=== PATIENT | female | born 1950 | race Caucasian/White ===

== ENCOUNTER 2021-07-20 10:15 | Inpatient (IN) | payer MEDICARE, BC ==
[2021-07-20] MEDS ORDERED: Ondansetron 8 MG Tab.DIS PO PRN (16:10)
[2021-07-20] MEDS ORDERED: Prochlorperazine 10 MG Tab PO PRN (16:10)
[2021-07-20] MEDS ORDERED: Sennosides 8.6 MG Tab PO PRN (16:10)
[2021-07-20] MEDS ORDERED: Albuterol 8 GM Inhaler INH PRN (16:10)
--- NOTE | 2021-07-20 16:30 | PCM.HP.2 ---
H&P History of Present Illness - General Date of Service: 07/20/21 Admit Problem/Dx: Admission Diagnosis/Problem Admission Diagnosis/Problem Weakness Source of Information: Patient, Family, Provider - History of Present Illness Initial Comments - Free Text/Narative: Radha presents for swing bed admission for weakness secondary to hepatic encephalopathy, high grade gastric neuroendocrine carcinoma. She had chemotherapy 07/04, 07/05, 07/06, had plexus block for pain on 07/09 she continued to decline was admitted to [facility] on 07/11 due to acute hepatic encephalopathy. History of cirrhosis, varices. Her ammonia 164 on admission, was 40 on 07/19, 42 on 07/20. She had her dose of Lactulose increased to 45 gm qid, she has had 6 stools today. She also had Rifaximin 550 mg bid added and her ammonia improved. She and her daughter state that she was taking 15 gm qid at home. She also had paracentesis on 07/09, did not show spontaneous bacterial peritonitis(SBP). She was being treated with Ciprofloxacin for this while awaiting body fluid results, discontinued 07/17. They had discussed starting Levofloxacin as prophylaxis but decided against this on discharge. They did note some malignant cells in the fluid. Oncology is holding off on chemotherapy until her WBC and functional status improves. CHEM: Na 133, K 3.3, Cl 103, CO2 21, Ca 7.8, Albumin 2.5, glucose 87, BUN <3, Cr 0.60. CBC: WBC 1.6, ANC 400, Hgb 9.5, Plts 138. She had episode of questionable partial seizure, had MRI showed hepatic encephalopathy, but no mets. EEG done. Neurology saw, started on Keppra 500 mg bid and she is to follow up in 4 weeks. They also did referral for palliative care, patient wants to try to get home and is not ready for hospice yet, so transferred for short term rehab. - Related Data Home Medications: Home Meds Albuterol [Ventolin HFA] 2 puff INH Q4H PRN 07/20/21 [History] Calcium Carbonate/Vitamin D3 [Oystercal-D 500 mg-400 Unit Tb] 1 tab PO BIDMEALS 07/20/21 [History] EPINEPHrine [Epipen 2-Mt] 0.3 mg IM ASDIRECTED PRN 07/20/21 [History] Ferrous Sulfate 325 mg PO BID 07/20/21 [History] Folic Acid 1 mg PO DAILY 07/20/21 [History] Furosemide 80 mg PO BID 07/20/21 [History] Lactulose [Chronulac] 30 gm PO QID 07/20/21 [History] Levothyroxine 75 mcg PO ACBREAKFAST 07/20/21 [History] Ondansetron [Zofran ODT] 8 mg PO BID PRN 07/20/21 [History] Pantoprazole Sodium [Protonix] 40 mg PO BIDAC 07/20/21 [History] Prochlorperazine [Compazine] 10 mg PO QID PRN 07/20/21 [History] Propylene Glycol/PEG 400/Pf [Systane 0.3-0.4% Eye Drop] 1 drop EYEBOTH Q4H PRN 07/20/21 [History] Rifaximin [Xifaxan] 550 mg PO BID 07/20/21 [History] Sennosides [Senna] 8.6 mg PO BEDTIME 07/20/21 [History] Spironolactone 50 mg PO DAILY 07/20/21 [History] Tetrahydrozoline HCl [Eye Drops] 1 drop EYEBOTH Q4H PRN 07/20/21 [History] Thiamine [Vitamin B-1] 100 mg PO DAILY 07/20/21 [History] Triamcinolone Acetonide [Triamcinolone Acetonide 0.1% Crm] 1 applic TOP ASDIRECTED 07/20/21 [History] dexAMETHasone [Dexamethasone] 8 mg PO ASDIRECTED 07/20/21 [History] levETIRAcetam [Keppra] 500 mg PO BID 07/20/21 [History] oxyCODONE 5 mg PO Q4H PRN 07/20/21 [History] H&P Review of Systems - Review of Systems: Review Of Systems: See Below General: Reports: Weakness, Weight Loss (lost 17 lbs since hospitalized.). Denies: Fever, Chills HEENT: Reports: No Symptoms Pulmonary: Reports: No Symptoms Cardiovascular: Reports: No Symptoms Gastrointestinal: Reports: Abdominal Pain, Diarrhea, Decreased Appetite. Denies: Black Stool, Bloody Stool, Nausea, Vomiting Genitourinary: Reports: No Symptoms Musculoskeletal: Reports: No Symptoms Skin: Reports: No Symptoms Psychiatric: Reports: No Symptoms Neurological: Reports: Confusion (some confusion), Difficulty Walking Hematologic/Lymphatic: Reports: Anemia, Easy Bleeding, Easy Bruising Exam - Exam Exam: See Below - Exam General: Alert, Oriented (person, place, somewhat confused), Cooperative, Other ([place]) HEENT: PERRLA, EOMI, Hearing Intact, Mucosa Moist & [place], Scleral Icterus Neck: Trachea Midline Lungs: Clear to Auscultation, Normal Respiratory Effort Cardiovascular: Regular Rate, Regular Rhythm GI/Abdominal Exam: Soft, No Distention, Guarding, Tender, Abnormal Bowel Sounds (hyperactive BS X 4), Hernia (Female) Exam: Deferred Rectal (Female) Exam: Deferred Extremities: No Pedal Edema, Normal Capillary Refill, Pallor Peripheral Pulses: 2+: Radial (L), Radial (R), Posterior Tibial (L), Posterior Tibial (R), Dorsalis Pedis (L), Dorsalis Pedis (R) Skin: Warm, Dry, Intact Neurological: Cranial Nerves Intact, Normal Speech, Normal Tone Neuro Extensive - Mental Status: Slow Response to Commands - Problem List (1) Weakness SNOMED Code(s): 76325266 ICD Code: R53.1 - WEAKNESS Status: Acute Current Visit: Yes (2) Neutropenia SNOMED Code(s): 638085755 ICD Code: D70.9 - NEUTROPENIA, UNSPECIFIED Status: Acute Current Visit: Yes Qualifiers: Neutropenia type: secondary to cancer chemotherapy Qualified Code(s): D70.1 - Agranulocytosis secondary to cancer chemotherapy; T45.1X5A - Adverse effect of antineoplastic and immunosuppressive drugs, initial encounter (3) Hepatic encephalopathy SNOMED Code(s): 41367778 ICD Code: K72.90 - HEPATIC FAILURE, UNSPECIFIED WITHOUT COMA Status: Chronic Current Visit: Yes (4) Partial seizure Status: Suspected Current Visit: Yes Problem Details: Had MRI showed hepatic encephalopathy, EEG. Neurology started Keppra 500 mg bid. Follow up in 4 weeks. (5) Neuroendocrine carcinoma of stomach SNOMED Code(s): 989666873, 169444685 ICD Code: C7A.8 - OTHER MALIGNANT NEUROENDOCRINE TUMORS Status: Chronic Current Visit: Yes (6) History of cirrhosis SNOMED Code(s): 309254797 ICD Code: Z87.19 - PERSONAL HISTORY OF OTHER DISEASES OF THE DIGESTIVE SYSTEM Status: Chronic Current Visit: Yes (7) History of esophageal varices SNOMED Code(s): 84530423806082625 ICD Code: Z87.19 - PERSONAL HISTORY OF OTHER DISEASES OF THE DIGESTIVE SYSTEM Status: Acute Current Visit: Yes (8) Hypothyroidism (acquired) SNOMED Code(s): 478453839 ICD Code: E03.9 - HYPOTHYROIDISM, UNSPECIFIED Status: Chronic Current Visit: Yes (9) Hypercholesteremia SNOMED Code(s): 27268889 ICD Code: E78.00 - PURE HYPERCHOLESTEROLEMIA, UNSPECIFIED Status: Chronic Current Visit: Yes (10) Alcohol dependence SNOMED Code(s): 25493888 ICD Code: F10.20 - ALCOHOL DEPENDENCE, UNCOMPLICATED Status: Chronic Current Visit: Yes (11) History of GI bleed SNOMED Code(s): 715728562 ICD Code: Z87.19 - PERSONAL HISTORY OF OTHER DISEASES OF THE DIGESTIVE SYSTEM Status: Chronic Current Visit: Yes (12) Asthma SNOMED Code(s): 771006927 ICD Code: J45.909 - UNSPECIFIED ASTHMA, UNCOMPLICATED Status: Chronic Current Visit: Yes (13) Protein-calorie malnutrition, severe SNOMED Code(s): 929849842, 998607524, 432354682 ICD Code: E43 - UNSPECIFIED SEVERE PROTEIN-CALORIE MALNUTRITION Status: Chronic Current Visit: Yes Problem List Initiated/Reviewed/Updated: Yes Orders Last 24hrs: Active Orders 24 hr Category Date Time Status Patient Status [ADT] Routine ADT 07/20/21 15:58 Ordered Height and Weight [RC] WEEKLY Care 07/20/21 15:58 Ordered Oxygen Therapy [RC] PRN Care 07/20/21 15:58 Ordered RT Aerosol Therapy [RC] ASDIRECTED Care 07/20/21 16:17 Ordered RT Post Treatment Assessment [RC] Click to Edit Care 07/20/21 16:17 Ordered Up With Assistance [RC] ASDIRECTED Care 07/20/21 15:58 Ordered Up to Chair [RC] ASDIRECTED Care 07/20/21 15:58 Ordered VTE/DVT Education [RC] Per Unit Routine Care 07/20/21 15:58 Ordered Vital Signs [RC] PER UNIT ROUTINE Care 07/20/21 15:58 Ordered OT Evaluation and Treatment [CONS] Routine Cons 07/20/21 15:58 Ordered PT Evaluation and Treatment [CONS] Routine Cons 07/20/21 15:58 Ordered Regular Diet [DIET] Diet 07/20/21 Dinner Ordered Albuterol [Ventolin HFA] Med 07/20/21 16:10 Ordered 2 puff INH Q4H PRN Calcium Carbonate/Vitamin D3 [Oystercal-D 500 mg-400 Med 07/20/21 18:00 Ordered Unit Tb] 1 tab PO BIDMEALS Ferrous Sulfate Med 07/20/21 21:00 Ordered 325 mg PO BID Folic Acid Med 07/21/21 09:00 Ordered 1 mg PO DAILY Furosemide [Lasix] Med 07/20/21 21:00 Ordered 80 mg PO BID Lactulose [Chronulac] Med 07/20/21 17:00 Ordered 30 gm PO QID Levothyroxine Med 07/21/21 07:30 Ordered 75 mcg PO ACBREAKFAST Ondansetron [Zofran ODT] Med 07/20/21 16:10 Ordered 8 mg PO BID PRN Pantoprazole [ProTONIX] Med 07/20/21 17:30 Ordered 40 mg PO BIDAC Prochlorperazine [Compazine] Med 07/20/21 16:10 Ordered 10 mg PO QID PRN Propylene Glycol/PEG 400/Pf [Systane 0.3-0.4% Eye Drop] Med 07/20/21 16:10 Ordered 1 drop EYEBOTH Q4H PRN Rifaximin [Xifaxan] Med 07/20/21 21:00 Ordered 550 mg PO BID Sennosides [Senna] Med 07/20/21 16:10 Ordered 8.6 mg PO BEDTIME PRN Spironolactone [Aldactone] Med 07/21/21 09:00 Ordered 50 mg PO DAILY Tetrahydrozoline HCl [Eye Drops] Med 07/20/21 16:10 Ordered 1 drop EYEBOTH Q4H PRN Thiamine [Vitamin B-1] Med 07/21/21 09:00 Ordered 100 mg PO DAILY levETIRAcetam [Keppra] Med 07/20/21 21:00 Ordered 500 mg PO BID oxyCODONE Med 07/20/21 16:10 Ordered 5 mg PO Q4H PRN Antiembolic Hose [OM.PC] Per Unit Routine Oth 07/20/21 15:59 Ordered Resuscitation Status Routine Resus Stat 07/20/21 15:58 Ordered Medication Orders Albuterol (Albuterol 8 Gm Inhaler) gm INH Q4H PRN PRN Reason: SHORTNESS OF BREATH Ferrous Sulfate (Ferrous Sulfate 325 Mg Tab) 325 mg PO BID [facility] Folic Acid (Folic Acid 1 Mg Tab) 1 mg PO DAILY MATTHEW Furosemide (Furosemide 80 Mg Tab) 80 mg PO BID [facility] Lactulose (Lactulose Soln 10 Gm/15 Ml 15 Ml Ud Cup) 30 gm PO QID MATTHEW Levetiracetam (Levetiracetam 500 Mg Tab) 500 mg PO BID MATTEHW Levothyroxine Sodium (Levothyroxine 75 Mcg Tab) 75 mcg PO ACBREAKFAST [facility] Non-Formulary Medication (Calcium Carbonate/Vitamin D3 [Oystercal-D 500 Mg-400 Unit Tb]) 1 tab PO BIDMEALS [facility] Non-Formulary Medication (Propylene Glycol/Peg 400/Pf [Systane 0.3-0.4% Eye Drop]) 1 drop EYEBOTH Q4H PRN PRN Reason: Dry Eyes Non-Formulary Medication (Tetrahydrozoline Hcl [Eye Drops]) 1 drop EYEBOTH Q4H PRN PRN Reason: REDNESS Ondansetron HCl (Ondansetron 8 Mg Tab.Dis) 8 mg PO BID PRN PRN Reason: NAUSEA Oxycodone HCl (Oxycodone 5 Mg Tab) 5 mg PO Q4H PRN PRN Reason: Pain (moderate 4-6) Pantoprazole Sodium (Pantoprazole 40 Mg Tab.Cr) 40 mg PO BIDAC [facility] Prochlorperazine Maleate (Prochlorperazine 10 Mg Tab) 10 mg PO QID PRN PRN Reason: Nausea/Vomiting Rifaximin (Rifaximin 550 Mg Tab) 550 mg PO BID [facility] Senna (Sennosides 8.6 Mg Tab) 8.6 mg PO BEDTIME PRN PRN Reason: Constipation Spironolactone (Spironolactone 50 Mg Tab) 50 mg PO DAILY [facility] Thiamine HCl (Thiamine 100 Mg Tab) 100 mg PO DAILY [facility] Assessment/Plan Comment:: 1. Admit to swing bed for weakness, hepatic encephalopathy, gastric neuroendocrine carcinoma, protein calorie malnutrition. 2. Weakness: PT/OT evaluate & treat. 3. Hepatic encephalopathy/cirrhosis/ascites: Lactulose 30 gm QID, if continues to have >3 stools/day, may need to hold a dose and decrease to tid or decrease back to previous dose of 15 gm QID. Rifaximin 550 mg bid. Lasix 80 mg bid diuretics & Spironolactone 50 mg daily. 4. Gastric neuroendocrine carcinoma: hold chemotherapy until her WBC & functional status improves. 5. Neutropenia: Protective precautions. Repeat labs on Friday. Levofloxacin 6. Suspected partial seizures: Keppra 500 mg bid, follow up with Neurology in 4 weeks. Seizure precautions. 7. Protein-calorie malnutrition: Dietary consult, high protein supplements TID. She had Boost Breeze in [place], will use what dietary has available. 8. Diet: Regular diet, thin liquids. 9. Activity: up to chair and with assistance. 10. CODE STATUS: FULL. 11. Disposition: Once mets therapy goals, family and patient are hoping she can transition to home. Adjust treatments as needed. - Mortality Measure Prognosis:: Poor
[2021-07-20] MEDS ORDERED: Lactulose Soln 10 GM/15 ML 30 ML UD Cup PO SCH ×2 (17:00→21:00)
[2021-07-20] MEDS ORDERED: Lactulose Soln 10 GM/15 ML 15 ML UD Cup PO SCH (17:00)
[2021-07-20] MEDS: Pantoprazole 40 MG Tab.CR PO SCH (18:00)
[2021-07-20] MEDS: Calcium Carbonate 500 MG Tablet PO SCH (18:00)
[2021-07-20] MEDS: oxyCODONE 5 MG Tab PO PRN (18:11)
[2021-07-20] MEDS: Ferrous Sulfate 325 MG Tab PO SCH (20:14)
[2021-07-20] MEDS: levETIRAcetam 500 MG Tab PO SCH (20:15)
[2021-07-20] MEDS: Rifaximin 550 MG Tab PO SCH (20:16)
[2021-07-20] MEDS: Lactulose Soln 10 GM/15 ML 30 ML UD Cup PO SCH ×2 (20:19→20:51)
[2021-07-20] MEDS: TETRAHYDROZOLINE EYEBOTH PRN (20:21)
[2021-07-20] MEDS: ZINC SULFATE EYEBOTH PRN (20:21)
[2021-07-21] MEDS: Levothyroxine 75 MCG Tab PO SCH (05:55)
[2021-07-21] MEDS: Pantoprazole 40 MG Tab.CR PO SCH ×2 (06:33→17:26)
[2021-07-21] MEDS: Furosemide 80 MG Tab PO SCH ×2 (08:27→13:36)
[2021-07-21] MEDS: Calcium Carbonate 500 MG Tablet PO SCH ×2 (08:28→17:26)
[2021-07-21] MEDS: Folic Acid 1 MG Tab PO SCH (08:28)
[2021-07-21] MEDS: Rifaximin 550 MG Tab PO SCH ×2 (08:28→20:14)
[2021-07-21] MEDS: levETIRAcetam 500 MG Tab PO SCH ×2 (08:28→20:14)
[2021-07-21] MEDS: Spironolactone 50 MG Tab PO SCH (08:29)
[2021-07-21] MEDS: Lactulose Soln 10 GM/15 ML 30 ML UD Cup PO SCH ×4 (08:29→20:14)
[2021-07-21] MEDS: Ferrous Sulfate 325 MG Tab PO SCH ×2 (08:30→20:14)
[2021-07-21] MEDS: Thiamine 100 MG Tab PO SCH (08:30)
[2021-07-21] MEDS: ZINC SULFATE EYEBOTH PRN ×2 (08:33→20:15)
[2021-07-21] MEDS: TETRAHYDROZOLINE EYEBOTH PRN ×2 (08:33→20:15)
[2021-07-21] MEDS: PEG 400/Propylene Glycol Ophth Soln 15 ML Bottle EYEBOTH PRN (08:34)
[2021-07-21] MEDS: oxyCODONE 5 MG Tab PO PRN ×2 (14:21→22:50)
[2021-07-22] MEDS: oxyCODONE 5 MG Tab PO PRN ×2 (05:37→20:07)
[2021-07-22] MEDS: Levothyroxine 75 MCG Tab PO SCH (05:38)
[2021-07-22] MEDS: Pantoprazole 40 MG Tab.CR PO SCH ×2 (06:32→17:48)
[2021-07-22] MEDS: Lactulose Soln 10 GM/15 ML 30 ML UD Cup PO SCH ×5 (08:36→21:24)
[2021-07-22] MEDS: Furosemide 80 MG Tab PO SCH ×2 (08:36→13:32)
[2021-07-22] MEDS: Ferrous Sulfate 325 MG Tab PO SCH ×2 (08:37→20:06)
[2021-07-22] MEDS: Calcium Carbonate 500 MG Tablet PO SCH ×2 (08:37→17:49)
[2021-07-22] MEDS: Spironolactone 50 MG Tab PO SCH (08:37)
[2021-07-22] MEDS: Folic Acid 1 MG Tab PO SCH (08:38)
[2021-07-22] MEDS: Rifaximin 550 MG Tab PO SCH ×2 (08:38→20:07)
[2021-07-22] MEDS: levETIRAcetam 500 MG Tab PO SCH ×2 (08:38→20:06)
[2021-07-22] MEDS: Thiamine 100 MG Tab PO SCH (08:38)
[2021-07-22] MEDS: PEG 400/Propylene Glycol Ophth Soln 15 ML Bottle EYEBOTH PRN ×2 (08:39→13:33)
[2021-07-22] MEDS: ZINC SULFATE EYEBOTH PRN (20:10)
[2021-07-22] MEDS: TETRAHYDROZOLINE EYEBOTH PRN (20:10)
[2021-07-23] MEDS: TETRAHYDROZOLINE EYEBOTH PRN (05:09)
[2021-07-23] MEDS: ZINC SULFATE EYEBOTH PRN (05:09)
[2021-07-23] MEDS: Levothyroxine 75 MCG Tab PO SCH (05:14)
[2021-07-23] MEDS: Pantoprazole 40 MG Tab.CR PO SCH (06:45)
[2021-07-23] MEDS: Calcium Carbonate 500 MG Tablet PO SCH (07:55)
[2021-07-23] MEDS: Furosemide 80 MG Tab PO SCH ×2 (07:55→13:50)
[2021-07-23] MEDS: Rifaximin 550 MG Tab PO SCH (07:59)
[2021-07-23] MEDS: Lactulose Soln 10 GM/15 ML 30 ML UD Cup PO SCH ×2 (07:59→13:50)
[2021-07-23] MEDS: Ferrous Sulfate 325 MG Tab PO SCH (07:59)
[2021-07-23] MEDS: Thiamine 100 MG Tab PO SCH (07:59)
[2021-07-23] MEDS: Spironolactone 50 MG Tab PO SCH (07:59)
[2021-07-23] MEDS: Folic Acid 1 MG Tab PO SCH (07:59)
[2021-07-23] MEDS: levETIRAcetam 500 MG Tab PO SCH (07:59)
[2021-07-23] MEDS: Potassium Chloride 20 MEQ Tab.ER PO SCH ×2 (08:41→13:50)
--- NOTE | 2021-07-23 16:42 | PCM.DCSUM1 ---
Discharge Summary - Hospital Course HPI Initial Comments: Radha presents for swing bed admission for weakness secondary to hepatic encephalopathy, high grade gastric neuroendocrine carcinoma. She had chemotherapy 07/04, 07/05, 07/06, had plexus block for pain on 07/09 she continued to decline was admitted to [facility] on 07/11 due to acute hepatic encephalopathy. History of cirrhosis, varices. Her ammonia 164 on admission, was 40 on 07/19, 42 on 07/20. She had her dose of Lactulose increased to 45 gm qid, she has had 6 stools today. She also had Rifaximin 550 mg bid added and her ammonia improved. She and her daughter state that she was taking 15 gm qid at home. She also had paracentesis on 07/09, did not show spontaneous bacterial peritonitis(SBP). She was being treated with Ciprofloxacin for this while awaiting body fluid results, discontinued 07/17. They had discussed starting Levofloxacin as prophylaxis but decided against this on discharge. They did note some malignant cells in the fluid. Oncology is holding off on chemotherapy until her WBC and functional status improves. CHEM: Na 133, K 3.3, Cl 103, CO2 21, Ca 7.8, Albumin 2.5, glucose 87, BUN <3, Cr 0.60. CBC: WBC 1.6, ANC 400, Hgb 9.5, Plts 138. She had episode of questionable partial seizure, had MRI showed hepatic encephalopathy, but no mets. EEG done. Neurology saw, started on Keppra 500 mg bid and she is to follow up in 4 weeks. They also did referral for palliative care, patient wants to try to get home and is not ready for hospice yet, so transferred for short term rehab. Diagnosis: Stroke: No - Discharge Data Discharge Date: 07/23/21 ([facility]) Discharge Disposition: Home, W Home Health Agency 06 Condition: Good - Referral to Home Health Date of Face to Face Encounter: 07/23/21 Reason for Homebound Status: Limited mobility Primary Care Physician: PCP Not In Area Skilled Need: [facility]DC for assessment/education for medications, PT/OT - Discharge Diagnosis/Problem(s) (1) Weakness SNOMED Code(s): 22801958 ICD Code: R53.1 - WEAKNESS Status: Acute (2) Hypokalemia SNOMED Code(s): 83001631 ICD Code: E87.6 - HYPOKALEMIA Status: Acute Problem Details: K 2.9 today, KCL 20 mEQ tid, repeat labs on 07/25. (3) Neutropenia SNOMED Code(s): 553473707 ICD Code: D70.9 - NEUTROPENIA, UNSPECIFIED Status: Resolved Problem Details: WBC 3.3 today, ANC 1500 Qualifiers: Neutropenia type: secondary to cancer chemotherapy Qualified Code(s): D70.1 - Agranulocytosis secondary to cancer chemotherapy; T45.1X5A - Adverse effect of antineoplastic and immunosuppressive drugs, initial encounter (4) Hepatic encephalopathy SNOMED Code(s): 93599880 ICD Code: K72.90 - HEPATIC FAILURE, UNSPECIFIED WITHOUT COMA Status: Chronic (5) Partial seizure Status: Suspected Problem Details: Had MRI showed hepatic encephalopathy, EEG. Neurology started Keppra 500 mg bid. Follow up in 4 weeks. (6) Neuroendocrine carcinoma of stomach SNOMED Code(s): 613433226, 750552842 ICD Code: C7A.8 - OTHER MALIGNANT NEUROENDOCRINE TUMORS Status: Chronic (7) History of cirrhosis SNOMED Code(s): 565464429 ICD Code: Z87.19 - PERSONAL HISTORY OF OTHER DISEASES OF THE DIGESTIVE SYSTEM Status: Chronic (8) History of esophageal varices SNOMED Code(s): 12832043842569089 ICD Code: Z87.19 - PERSONAL HISTORY OF OTHER DISEASES OF THE DIGESTIVE SYSTEM Status: Acute (9) Hypothyroidism (acquired) SNOMED Code(s): 504949974 ICD Code: E03.9 - HYPOTHYROIDISM, UNSPECIFIED Status: Chronic (10) Hypercholesteremia SNOMED Code(s): 16248535 ICD Code: E78.00 - PURE HYPERCHOLESTEROLEMIA, UNSPECIFIED Status: Chronic (11) Alcohol dependence SNOMED Code(s): 73648749 ICD Code: F10.20 - ALCOHOL DEPENDENCE, UNCOMPLICATED Status: Chronic (12) History of GI bleed SNOMED Code(s): 946085304 ICD Code: Z87.19 - PERSONAL HISTORY OF OTHER DISEASES OF THE DIGESTIVE SYSTEM Status: Chronic (13) Asthma SNOMED Code(s): 946981067 ICD Code: J45.909 - UNSPECIFIED ASTHMA, UNCOMPLICATED Status: Chronic (14) Protein-calorie malnutrition, severe SNOMED Code(s): 260493097, 938086195, 105725939 ICD Code: E43 - UNSPECIFIED SEVERE PROTEIN-CALORIE MALNUTRITION Status: Chronic - Patient Summary/Data Consults: Consultations 07/20/21 15:58 OT Evaluation and Treatment [CONS] Routine Please Evaluate and Treat. OT Reason for Consult: ADL's This query below is only for informational purposes and is not editable. PT Evaluation and Treatment [CONS] Routine Please Evaluate and Treat. PT Reason for Consult: Strengthening This query below is only for informational purposes and is not editable. Hospital Course: Pt had 8 BM on Friday, decreased dose of Lactulose to 20 gm qid, has slowed to 4 BM/day. She is more alert per family. Ammonia level pending. WBC improved to 3.3, Hgb 9.7, Plts 239, ANC 1500. Taken out of protective precautions today. K 2.9, replaced with KCL 20 mEq tid, repeat labs on 07/[address] Gambino to see if she needs to continue. Likely secondary to increased intestinal losses on Friday(8 BMs), on Lasix and Spironolactone. OT evaluated on Friday, PT saw on Friday and both reassessed today, she met her therapy goals and would like to go home. Her potassium is low but has been supplemented and her stools have slowed down so advised pt and her need to recheck labs on . They stated they were to have labs prior to their appt with Dr Gambino. I gave 2 weeks of new medications that were started in [place], advised to follow up with her PCP in [place] before then to get them refilled. They voiced understanding and were agreeable with plan. Left in stable condition in care of her . - Patient Instructions Diet: Usual Diet as Tolerated Activity: As Tolerated Driving: Do Not Drive Showering/Bathing: May Shower Other/Special Instructions: Follow up with Dr Gambino on 07/25, will need your potassium rechecked. Potassium 20 mEq three times a day. Follow up with Primary doctor in 1-2 week for hospital recheck and refill new medications. - Discharge Plan *PRESCRIPTION DRUG MONITORING PROGRAM REVIEWED*: Not Applicable *COPY OF PRESCRIPTION DRUG MONITORING REPORT IN PATIENT VIV: Not Applicable Prescriptions/Med Rec: Lactulose [Cephulac] 20 gm PO QID #2 bottle levETIRAcetam [Keppra] 500 mg PO BID #28 tab Potassium Chloride [Klor-Con M20] 20 meq PO TID #21 tab.er Rifaximin [Xifaxan] 550 mg PO BID #28 tab Home Medications: Home Meds Albuterol [Ventolin HFA] 2 puff INH Q4H PRN 07/20/21 [History] Calcium Carbonate/Vitamin D3 [Oystercal-D 500 mg-400 Unit Tb] 1 tab PO BIDMEALS 07/20/21 [History] EPINEPHrine [Epipen 2-Mt] 0.3 mg IM ASDIRECTED PRN 07/20/21 [History] Ferrous Sulfate 325 mg PO BID 07/20/21 [History] Folic Acid 1 mg PO DAILY 07/20/21 [History] Furosemide 80 mg PO BID 07/20/21 [History] Levothyroxine 75 mcg PO ACBREAKFAST 07/20/21 [History] Ondansetron [Zofran Odt] 8 mg PO BID PRN 07/20/21 [History] Pantoprazole Sodium [Protonix] 40 mg PO BIDAC 07/20/21 [History] Prochlorperazine [Compazine] 10 mg PO QID PRN 07/20/21 [History] Propylene Glycol/PEG 400/Pf [Systane 0.3-0.4% Eye Drop] 1 drop EYEBOTH Q4H PRN 07/20/21 [History] Sennosides [Senna] 8.6 mg PO BEDTIME 07/20/21 [History] Spironolactone 50 mg PO DAILY 07/20/21 [History] Tetrahydrozoline HCl [Eye Drops] 1 drop EYEBOTH Q4H PRN 07/20/21 [History] Thiamine [Vitamin B-1] 100 mg PO DAILY 07/20/21 [History] Triamcinolone Acetonide [Triamcinolone Acetonide 0.1% Crm] 1 applic TOP ASDIRECTED 07/20/21 [History] dexAMETHasone [Dexamethasone] 8 mg PO ASDIRECTED 07/20/21 [History] oxyCODONE 5 mg PO Q4H PRN 07/20/21 [History] Lactulose [Cephulac] 20 gm PO QID #2 bottle 07/23/21 [Rx] Potassium Chloride [Klor-Con M20] 20 meq PO TID #21 tab.er 07/23/21 [Rx] Rifaximin [Xifaxan] 550 mg PO BID #28 tab 07/23/21 [Rx] levETIRAcetam [Keppra] 500 mg PO BID #28 tab 07/23/21 [Rx] Patient Handouts: Hepatic Encephalopathy, Ammonia Test, Seizure, Adult - Discharge Summary/Plan Comment DC Time >30 min.: No Total # of Minutes for Discharge Time: 20 min - General Info Date of Service: 07/23/21 Subjective Update: Her stools have slowed since Friday, there were 8/day on admission and have decreased to 4 BM/day. Her dose of Lactulose was decreased to 20 gm qid. Pain controlled. No nausea, vomiting, fevers, chills. Wants to go home today. Functional Status: Reports: Pain Controlled, Tolerating Diet, Ambulating, Urinating. Denies: New Symptoms - Patient Data Vitals - Most Recent: Last Vital Signs Temp 97.9 F 07/23/21 08:00 Pulse 65 07/23/21 08:00 Resp 16 07/23/21 08:00 BP 91/53 L 07/23/21 08:00 Pulse Ox 94 L 07/23/21 08:00 Weight - Most Recent: 102 lb 6.4 oz Lab Results - Last 24 hrs: Laboratory Results - last 24 hr 07/23/21 07/23/21 Range/Units 06:55 06:55 WBC 3.3 (3.0-10.3) x10-3/uL RBC 3.39 L (3.60-5.20) x10(6)uL Hgb 9.7 L (11.4-15.5) g/dL Hct 27.2 L (34.2-48.2) % MCV 80.4 (76.7-100.5) fL MCH 28.8 (23.9-33.9) pg MCHC 35.8 H (31.9-34.8) g/dL RDW 16.9 H (12.3-16.5) % Plt Count 239 (151-488) x10(3)uL MPV 7.5 (7.1-12.4) fL Add Manual Diff Yes Neutrophils % (Manual) 44 L (46-82) % Lymphocytes % (Manual) 24 (13-37) % Monocytes % (Manual) 32 H (4-12) % Microcytosis Moderate H Sodium 135 (135-145) mmol/L Potassium 2.9 L (3.5-5.3) mmol/L Chloride 98 L (100-110) mmol/L Carbon Dioxide 30 (21-32) mmol/L BUN 6 L (7-18) mg/dL Creatinine 1.1 H (0.55-1.02) mg/dL Est Cr Clr Drug Dosing 35.01 mL/min Estimated GFR (MDRD) 49 L (>60) BUN/Creatinine Ratio 5.5 L (9-20) Glucose 90 (80-116) mg/dL Calcium 8.5 L (8.6-10.2) mg/dL Total Bilirubin 0.9 (0.1-1.3) mg/dL AST 20 (5-25) IU/L ALT 12 (12-36) U/L Alkaline Phosphatase 104 (56-112) IU/L Total Protein 6.1 (6.0-8.0) g/dL Albumin 2.9 L (3.2-4.6) g/dL Globulin 3.2 g/dL Albumin/Globulin Ratio 0.9 Med Orders - Current: Current Medications Discontinued Medications Albuterol (Albuterol 8 Gm Inhaler) 0 gm INH Q4H PRN PRN Reason: SHORTNESS OF BREATH Calcium Carbonate/Glycine (Calcium Carbonate 500 Mg Tablet) 500 mg PO BIDMEALS [facility] Last Admin: 07/23/21 07:55 Dose: 500 mg Documented by: Ferrous Sulfate (Ferrous Sulfate 325 Mg Tab) 325 mg PO BID [facility] Last Admin: 07/23/21 07:59 Dose: 325 mg Documented by: Folic Acid (Folic Acid 1 Mg Tab) 1 mg PO DAILY [facility] Last Admin: 07/23/21 07:59 Dose: 1 mg Documented by: Furosemide (Furosemide 80 Mg Tab) 80 mg PO BIDDIURETIC [facility] Last Admin: 07/23/21 13:50 Dose: 80 mg Documented by: Lactulose (Lactulose Soln 10 Gm/15 Ml 15 Ml Ud Cup) 20 gm PO QID [facility] Lactulose (Lactulose Soln 10 Gm/15 Ml 30 Ml Ud Cup) 20 gm PO QID [facility] Last Admin: 07/20/21 17:59 Dose: 20 gm Documented by: Lactulose (Lactulose Soln 10 Gm/15 Ml 30 Ml Ud Cup) 15 gm PO QID [facility] Lactulose (Lactulose Soln 10 Gm/15 Ml 30 Ml Ud Cup) 20 gm PO QID [facility] Last Admin: 07/23/21 13:50 Dose: 20 gm Documented by: Levetiracetam (Levetiracetam 500 Mg Tab) 500 mg PO BID [facility] Last Admin: 07/23/21 07:59 Dose: 500 mg Documented by: Levothyroxine Sodium (Levothyroxine 75 Mcg Tab) 75 mcg PO 0600 [facility] Last Admin: 07/23/21 05:14 Dose: 75 mcg Documented by: Ondansetron HCl (Ondansetron 8 Mg Tab.Dis) 8 mg PO BID PRN PRN Reason: NAUSEA Oxycodone HCl (Oxycodone 5 Mg Tab) 5 mg PO Q4H PRN PRN Reason: Pain (moderate 4-6) Last Admin: 07/22/21 20:07 Dose: 5 mg Documented by: Pantoprazole Sodium (Pantoprazole 40 Mg Tab.Cr) 40 mg PO BIDAC [facility] Last Admin: 07/23/21 06:45 Dose: 40 mg Documented by: Potassium Chloride (Potassium Chloride 20 Meq Tab.Er) 20 meq PO TID [facility] Last Admin: 07/23/21 13:50 Dose: 20 meq Documented by: Prochlorperazine Maleate (Prochlorperazine 10 Mg Tab) 10 mg PO QID PRN PRN Reason: Nausea/Vomiting Propylene Glycol (Peg 400/Propylene Glycol Ophth Soln 15 Ml Bottle) 0 ml EYEBOTH Q4H PRN PRN Reason: Dry Eyes Last Admin: 07/22/21 13:33 Dose: 1 drop Documented by: Rifaximin (Rifaximin 550 Mg Tab) 550 mg PO BID [facility] Last Admin: 07/23/21 07:59 Dose: 550 mg Documented by: Senna (Sennosides 8.6 Mg Tab) 8.6 mg PO BEDTIME PRN PRN Reason: Constipation Spironolactone (Spironolactone 50 Mg Tab) 50 mg PO DAILY [facility] Last Admin: 07/23/21 07:59 Dose: 50 mg Documented by: Tetrahydrozoline HCl/Zinc Sulfate (Tetrahydrozoline/Zinc Sulfate 15 Ml Bottle) 0 ml EYEBOTH Q4H PRN PRN Reason: REDNESS Last Admin: 07/23/21 05:09 Dose: 1 drop Documented by: Thiamine HCl (Thiamine 100 Mg Tab) 100 mg PO DAILY [facility] Last Admin: 07/23/21 07:59 Dose: 100 mg Documented by: - Exam General: Reports: Alert, Oriented, Cooperative, No Acute Distress Lungs: Reports: Clear to Auscultation, Normal Respiratory Effort, Decreased Breath Sounds (bibasilar) Cardiovascular: Reports: Regular Rate, Regular Rhythm GI/Abdominal Exam: Normal Bowel Sounds, Soft, Non-Tender, No Distention. No: Guarding, Rigid, Rebound Extremities: No Pedal Edema
== END 2021-07-23 15:00 | disposition home health service (06) | DRG 947 ==
LOC: FB.MS 15:01
PROVIDERS: ADMIT Family Medicine; ATTEND Family Medicine
DX: R53.1 Weakness (principal); E43 Unspecified severe protein-calorie malnutrition; C7A.8 Other malignant neuroendocrine tumors; R18.8 Other ascites; Z68.1 Body mass index [BMI] 19.9 or less, adult; E87.6 Hypokalemia; D70.1 Agranulocytosis secondary to cancer chemotherapy; T45.1X5A Adverse effect of antineoplastic and immunosuppressive drugs, initial encounter; K72.10 Chronic hepatic failure without coma; E03.9 Hypothyroidism, unspecified; E78.00 Pure hypercholesterolemia, unspecified; F10.20 Alcohol dependence, uncomplicated; J45.909 Unspecified asthma, uncomplicated; K74.60 Unspecified cirrhosis of liver; R56.9 Unspecified convulsions; Z51.5 Encounter for palliative care; Z87.19 Personal history of other diseases of the digestive system; Z79.890 Hormone replacement therapy; Z79.899 Other long term (current) drug therapy
CPT/HCPCS: 36415; 80053; 82140; 85025; 97161-GP; 97165-GO; 97530-GO; 97535-GO; A9270-GY